=== PATIENT | female | born 1995 | race Caucasian/White ===

== ENCOUNTER 2025-06-22 22:07 | Emergency (ER) | payer BC, SELFPAY ==
[2025-06-22 22:25] VITALS: BP 123/80; PULSE 80; RESP 16; TEMP 36.6; O2SAT 96; BMI 24.4
[2025-06-23] MEDS: ONDANSETRON 2 MG/ML inj 4 MG IVP
--- OUTSIDE RECORDS SUMMARY | 2025-06-23 00:34 | XMS_ITS | Clinical Summary ---
Author Organization [employer] [facility] Address [address] [place] [address] Care Team Providers Care File Clerk Name Role Phone Lyndsay Dickson MD Primary Care Provider + [phone] Allergies Active Allergy Reactions Criticality Noted Date Comments Amoxicillin Hives,Rash Medium 11/25/2017 Sulfamethoxazole-Trimethopr im Hives Low 08/31/2018 Diatrizoate Allergen *Unknown 04/14/2003 Contrast Adverse Reaction Medications EPINEPHrine (EpiPen) 0.3 mg/0.3 mL auto-injectorIndi cations:Allergic reaction to allergen immunotherapy Inject 0.3 mg (1 pen.) intramuscular each time if needed for Allergic Reaction. 2 Each 1 12/19/19 23 Active multivitamin () 27 mg iron- 800 mcg folic Take 1 Tablet by mouth once daily with a meal. 11/01/19 25 Active medroxyPROGESTERo ne (Provera) 10 mg tabletIndications :Abnormal uterine bleeding (AUB) Take 1 Tablet (10 mg) by mouth once daily. Take for 10 days for resolution of bleeding. 10 Tablet 03/14/20 25 Active acetaminophen 325 mg tabletIndications :Retained products of conception after miscarriage (HC) Take 1-2 Tablets (325-650 mg) by mouth every 4 hours if needed (mild pain). Max acetaminophen dose: 4000mg in 24 hrs. 03/17/20 25 Active ibuprofen 200 mg tabletIndications :Retained products of conception after miscarriage (HC) Take 2-4 Tablets (400-800 mg) by mouth every 6 hours if needed for Pain (mild pain). 03/17/20 25 Active sertraline (ZOLOFT) 25 mg tabletIndications :Generalized anxiety disorder Take 1 Tablet (25 mg) by mouth once daily. 90 Tablet 1 05/02/20 25 Active ondansetron (ZOFRAN) 4 mg tabletIndications :Nausea Take 1 Tablet (4 mg) by mouth every 6 hours if needed for Nausea/Vomiting. 27 Tablet 06/21/20 25 Active ondansetron (ZOFRAN) 4 mg tabletIndications :Nausea Take 2 Tablets (8 mg) by mouth every 8 hours if needed for Nausea/Vomiting. 9 Tablet 1 12/06/19 25 025 Discontin ued(*Medi cation adjustmen t) ondansetron (ZOFRAN) 4 mg tabletIndications :Nausea Take 1 Tablet (4 mg) by mouth every 6 hours if needed for Nausea/Vomiting. 27 Tablet 06/20/20 25 025 Discontin ued(Reord er (E-cancel not sent)) Active Problems Problem Noted Date Diagnosed Date Retained products of conception after miscarriag e 03/16/2025 Anxiety 11/01/2024 Pap smear for cervical cancer screening 10/03/20 24 Overview (10/03/2024): 09/2024 NIL/ HPV negative Plan: Pap/ HPV due 09/2029 Seasonal allergies 12/18/2020 Resolved Problems Problem Noted Date Diagnosed Date Resolved Date Encounter for supervision of normal first in first trimester 11/01/2024 03/14/2025 Overview (11/01/2024): [facility] [place] 29 y.o. Final Estimated Date of Delivery: 07/01/25 by LMP FOB: Blair sex: High Risk? Anxiety, currently taking Zoloft. Feels stable Overview: GA at 1OB: 5w Blood type: pending Pre-gravid BMI 25.54, goal TWG 7 kg (15 lb)-11.5 kg (25 lb) at term Aspirin 81 mg indicated: no HSV: denies Domestic violence: _ Accepting of blood products: _ Imaging: _ Encounters Date Type Department Care Team Description 05/02/2025 Orders Only [facility] [address] [place] [phone] Lyndsay Dickson MD <No scans attached> 04/22/2025 Refill [facility] [address] [place] [phone] Lyndsay Dickson MD Refill Request (Sertraline) 03/28/2025 Nurse Triage [facility]ly [facility], [facility] [address] [facility] [address] [place] [address] Ruben Bray MD Vaginal Bleeding from Last 3 Months Immunizations Immunization Administration Dates Next Due DTaP 12/30/2002, 8,1997,08/22 DTaP-HIB (TriHIBIT) 10/17/1998 HIB PRP-T (ActHIB,Hiberix) 1997,1997 ,1997 Hepatitis A (Peds) 03/20/2010,04/25/2009 Hepatitis B (Adult) 04/17/1998,1997,1996 Human Papilloma Virus Vaccine 01/09/2016, 014,04/11/2013 Inactivated Polio Vaccine 12/30/2002,1997, 1997 Influenza, IIV3 (Age 6-35 mos) 06/26/2009 Influenza, IIV3 (Age >=3 years) 07/22/2011,07/29 MENINGOCOCCAL VACCINE 2 VIAL 2MO-55YO (MENVEO) 10/24/2013 MMR 12/30/2002,10/17/1998 Meningococcal Vaccine (Menactra) 01/09/2016,03/05 Oral Polio Vaccine 10/17/1998 Tdap 01/09/2016,03/20/2010 Family History Medical History Relation Name Comments Anxiety disorder Brother Son Hyperlipidemia Father Skin cancer Father Cancer-colon Maternal Grandfather Earl Cancer-breast Maternal Grandmother Marli Thyroid Disease Mother Ulcerative colitis Paternal Grandmother Relation Name Status Comments Brother Son Alive Father Alive Maternal Grandfather Earl Alive Maternal Grandmother Marli Alive Mother Alive Paternal Grandfather Alive Paternal Grandmother Alive Social History Tobacco Use Types Packs/Day Years Used Date Smoking Tobacco: Never Smokeless Tobacco: Never Tobacco Cessation:Counseling Given: Not Answered Alcohol Use Standard Drinks/Week Comments Not Currently 1 (1 standard drink = 0.6 oz pur e alcohol) PHQ-2 Answer Date Recorded PHQ-2 TOTAL SCORE 0 11/01/2024 Social Connections Answer Date Recorded Do you often feel lonely or isolated from those around you? 0 09/18/2024 Financial Resource Strain Answer Date R ecorded Difficulty of Paying Living Expenses 3 09/18/2024 Difficulty of Paying Living Expenses Not on file 09/18/2024 Food Insecurity Answer Date Recorded Do you worry your food will run out before you are able to buy more? 1 09/18/2024 Transportation Needs Answer Date Record ed Does lack of transportation keep you from medica l appointments? 1 09/18/2024 Does lack of transportation keep you from work, meetings or getting things that you need? 1 09/18/2024 Housing Stability Answer Date Recorded What is your housing situation today? 1 09/18/2024 Utilities Answer Date Recorded Do you have trouble paying f or utilities (for example, heat, electricity, water, phone)? 1 09/18/2024 Comments No Sex and Gender Information Value Date Recorded Sex Assigned at Not on file Legal Sex Female 8:28 AM CDT Gender Identity Not on file Sexual Orientation Not on file Obstetrics History Para Term AB IAB SAB Ectopic Multiple Livin g Live Births 1 0 0 0 1 0 1 0 0 0 0 Date Outcome GA Total Labor Labor/2nd/3rd Weight Sex Type Anes PTL Tessie A1 A5 Name Clin 025 SAB 10w2 d Last Filed Vital Signs Vital Sign Reading Time Taken Comments Blood Pressure 111/59 03/17/2025 11:10 AM CDT Pulse 59 03/17/2025 11:10 AM CDT Temperature 36.7 C (98 F) 03/17/2025 10:15 AM CDT Respiratory Rate 16 03/17/2025 11:10 AM CDT Oxygen Saturation 98% 03/17/2025 11:10 AM CDT Inhaled Oxygen Concentration - - Weight 78.7 kg (173 lb 6.4 oz) 03/17/2025 8:47 A M CDT Height 177.8 cm (5' 10) 03/17/2025 8:47 AM CDT Body Mass Index 24.88 03/17/2025 8:47 AM CDT Plan of Treatment Health Maintenance Due Date Last Done Comments COVID-19 vaccine series ( season) 2025 Influenza Vaccine (#1) 2025 1, 07/29/2010, 06/26/2009 BMI (ht and wt on same day) for age 18+ 09/19/2025 09/19/2024, 09/14/2023, 12/18/2022, Additional history exists Depression screening for age 12+ 11/01/2025 11/01/2024, 09/19/2024, 09/14/2023, Additional history exists Tetanus booster 01/08/2026 01/09/2016, 03/20/2010 Pap test for age 21-65 09/19/2029 , 09/19/2024, 08/19/2021, Additional history exists RSV vaccine for adults or (1 - 1-dose 75+ series) 2072 Hepatitis B series for 19+ Completed 04/17, 1997, 1997 HPV series for age 9-45 Completed 01/09/20 16, 10/24/2013, 04/11/2013 HIV for age 15-65 Completed 11/01/2024, 12/18/2022 Hepatitis C screening for age 18-79 Completed 11/01/2024, 09/14/2023 Pneumococcal series for age 6-49 Aged Out No longer eligible based on patient's age to complete this topic Procedures Procedure Name Priority Date/Time Associated Diagnosis Comments ANTI HIV 1/2 Routine 11/01/2024 12:19 PM PARTNERSHIP DEVELOPMENT MANAGER Encounter for supervision of normal first in first trimester (HC) ANTI HCV Routine 11/01/2024 12:19 PM PARTNERSHIP DEVELOPMENT MANAGER Encounter for supervision of normal first in first trimester (HC) HPV HIGH RISK Routine 09/19/2024 1:20 PM PARTNERSHIP DEVELOPMENT MANAGER Cervical cancer screening from Last 3 Months or Most Recently Relevant to Health Maintenance Results * ANTI HCV (11/01/2024 12:19 PM PARTNERSHIP DEVELOPMENT MANAGER) HEPATITIS C ANTIBODY NON-REACTI VE NON-REACT ALAN [facility] Comment: HCV antibody was non-reactive. There is no laboratory evidence of HCV infection. In most cases, no further action is required. However, if recent HCV exposure is suspected, a test for HCV RNA (test code 34294) is suggested. For additional information please refer to http://Iper[employer]/faq/FDO36h2 (This link is being provided for informational/ educational purposes only.) Blood BLOOD SPECIMEN / Unknown 11/01/2024 12:19 PM PARTNERSHIP DEVELOPMENT MANAGER 11/01/2024 12:20 PM PARTNERSHIP DEVELOPMENT MANAGER Narrative [facility] - 11/02/2024 2:01 PM PARTNERSHIP DEVELOPMENT MANAGER MULTIPLE TESTING PRIORITIES; ROUTINE TESTING TO FOLLOW. Marymicheline Ramos CN SEND OUTS Final Result [facility] [address] [place] [address], [facility] [address] [place] [address] * ANTI HIV 1/2 (11/01/2024 12:19 PM PARTNERSHIP DEVELOPMENT MANAGER) Pathologist [facility] HIV AG/AB, 4TH GEN NON-REACT ALAN NON-REACT ALAN [facility] Comment: HIV-1 antigen and HIV-1/HIV-2 antibodies were not detected. There is no laboratory evidence of HIV infection. PLEASE NOTE: This information has been disclosed to you from records whose confidentiality may be protected by state law. If your state requires such protection, then the state law prohibits you from making any further disclosure of the information without the specific written consent of the person to whom it pertains, or as otherwise permitted by law. A general authorization for the release of medical or other information is NOT sufficient for this purpose. For additional information please refer to http://Ipercast.[employer]/faq/XRP091 (This link is being provided for informational/ educational purposes only.) The performance of this assay has not been clinically validated in patients less than 2 years old. Blood BLOOD SPECIMEN / Unknown 11/01/2024 12:19 PM PARTNERSHIP DEVELOPMENT MANAGER 11/01/2024 12:20 PM PARTNERSHIP DEVELOPMENT MANAGER Narrative [facility] - 11/02/2024 2:01 PM PARTNERSHIP DEVELOPMENT MANAGER MULTIPLE TESTING PRIORITIES; ROUTINE TESTING TO FOLLOW. Mary Ramos WOJCIECH SEND OUTS Final Result [facility] [address] [place] [address], [facility] [address] [place] [address] * HPV HIGH RISK (09/19/2024 1:20 PM PARTNERSHIP DEVELOPMENT MANAGER) TYPE 16 Negative Negative 09/22/2024 1:52 PM PARTNERSHIP DEVELOPMENT MANAGER [facility] TYPE 18 Negative Negative 09/22/2024 1:52 PM PARTNERSHIP DEVELOPMENT MANAGER [facility] OTHER HIGH RISK TYPES Negative Negative 09/22/2024 1:52 PM PARTNERSHIP DEVELOPMENT MANAGER [facility] Other (Cervical) Non-Blood / Unknown 09/19/2024 1:20 PM PARTNERSHIP DEVELOPMENT MANAGER 09/20/2024 1:09 PM PARTNERSHIP DEVELOPMENT MANAGER Narrative [facility] - 09/22/2024 1:52 PM PARTNERSHIP DEVELOPMENT MANAGER HPV types 16, 18, 31, 33, 35, 39, 45, 51, 52, 56, 58, 59, 66 and 68 DNA were undetectable or below the pre-set threshold. Methodology: Aashish Vivien 4800 HPV Test Lyndsay Dickson MD MICROBIOLOGY Final Result [facility] [address] [place] [address], [place] from Last 3 Months or Most Recently Relevant to Health Maintenance Insurance [facility] BLUE CROSS OF NON-MD-ITS Advance Directives * Full Code (Latest Code Status on File) Date Activated Date Inactivated Comments 03/17/2025 8:46 AM 03/17/2025 1:21 PM Question Answer Comments Code Status Discussion: Reviewed Preferences Care Teams File Clerk Relationship Specialty Start [place] [address] [place] [address] PCP - General Family Practice 06/12/20
[2025-06-23] MEDS: METOCLOPRAMIDE HCL 5 MG/ML INJ 10 MG IVP (01:19)
[2025-06-23 01:43] VITALS: BP 119/78; PULSE 75; RESP 16; TEMP 36.6; O2SAT 96
[2025-06-23 01:44] VITALS: BP 119/78; PULSE 75; RESP 16; TEMP 36.6
--- NOTE | 2025-06-23 03:31 | ED_ITS ---
HPI - Nausea/Vomiting/Diarrhea General Date Seen: 06/23/25 Chief complaint: Nausea/Vomiting Stated complaint: vomiting Time Seen by Provider: 06/23/25 00:10 Source: patient Mode of arrival: ambulatory Limitations: no limitations History of Present Illness HPI Narrative: Patient is a 30-year-old 2 para 0010 at eight weeks gestation based on her LMP comes in with three weeks of nausea and vomiting. This has gotten worse over the past two or three days and she has not been able to keep anything down. She called the clinic and was told to come to the ER for IV fluids. She has no t established care with an pet caregiver yet. She has an ultrasound set up for next week. Her 1st ended in a miscarriage in the 1st trimester. She has not thrown up any blood. She denies lightheadedness or dizziness, fevers, urinary symptoms. She has tried Unisom and Zofran with minimal relief. Related Data Home Medications ?Medication ?Instructions ?Recorded ?Confirmed ondansetron HCl 4 mg tablet 4 mg PO Q8H PRN 06/22/25 0 06/22/25 Previous Rx's ?Medication ?Instructions ?Recorded ondansetron 8 mg disintegrating 8 mg PO TID PRN nausea and 06/23/25 tablet vomiting #30 tabs Allergies Allergy/AdvReac Type Severity Reaction Status Date / Time amoxicillin Allergy Unknown Verified 06/22/25 22:27 sulfamethoxazole (From Allergy Unknown Verified 06/22/25 22:27 Bactrim) trimethoprim (From Bactrim) Allergy Unknown Verified 06/22/25 22:27 Review of Systems Narrative: Review of systems is outlined above otherwise noted to be negative. PFSH [facility] Social History Smoking Status: Never smoker Second hand tobacco smoke exposure: No How often do you have a drink containing alcohol: never AUDIT-C Alcohol total score: 0 Non-prescribed substance use: denies use Exam Narrative: Exam Narrative: Vitals noted. HEENT: Conjunctiva clear. Neck is supple without adenopathy. Lungs: Clear to auscultation in all aragon. No wheezes, rales, rhonchi. Heart: Regular rate and rhythm without murmur. Abdomen: Soft and nontender. No guarding, rigidity, rebound. Bowel sounds are normal. No palpable masses. Extremities: No cyanosis or edema. Good distal pulses. Skin: No abnormalities noted of the exposed skin. Neurologic: Awake, alert, fully oriented. Neurologic exam is nonfocal. Const: Vital Signs, click to edit/add: Vital Signs - 24 hr 06/22/25 22:25 06/23/25 01:43 06/23/25 01:44 Temperature 98 F 98 F 98 F Pulse Rate [Pulse Oximeter] 80 75 75 Respiratory Rate 16 16 16 Blood Pressure [Ri ght Upper Arm] 123/80 119/78 119/78 Pulse Oximetry 96 96 Oxygen Delivery Me thod Room Air Room Air Course Course ED Course: Patient seen and examined. She has already received 1 L of normal saline and Zofran 4 mg IV. I ordered a second L of saline and a dose of Reglan 10 mg IV. She was able to keep down some fluids and crackers but her nausea persisted. She is comfortable being discharged. Vital Signs Vital signs: Initial Vital Signs Temperature 98 F 06/22/25 22:25 Temperature Source Temporal Artery Scan 06/22/25 22:25 Pulse Rate 80 06/22/25 22:25 Respiratory Rate 16 06/22/25 22:25 Blood Pressure 123/80 06/22/25 22:25 Blood Pressure Mean 94 06/22/25 22:25 Blood Pressure Position Sitting 06/22/25 22:25 Pulse Oximetry 96 06/22/25 22:25 Oxygen Delivery Method Room Air 06/22/25 22:25 Vital Signs Temperature 98 F 06/22/25 22:25 Pulse Rate 80 06/22/25 22:25 Respiratory Rate 16 06/22/25 22:25 Blood Pressure 123/80 06/22/25 22:25 Pulse Oximetry 96 06/22/25 22:25 Oxygen Delivery Method Room Air 06/22/25 22:25 Temperature 98 F 06/23/25 01:44 Pulse Rate 75 06/23/25 01:44 Respiratory Rate 16 06/23/25 01:44 Blood Pressure 119/78 06/23/25 01:44 Pulse Oximetry 96 06/23/25 01:43 Oxygen Delivery Method Room Air 06/23/25 01:43 Medications Administered Medications: Discontinued Medications Generic Name Dose Route Start Last Admin Trade Name Freq PRN Reason Stop Dose Admin Sodium Chloride 1,000 mls @ 1,000 mls/hr 06/22/25 23:45 06/23/25 00:19 0.9 % Sodium Chloride 1000 Ml IV 06/23/25 00:44 Infused .Q1H HILARIO Infusion Sodium Chloride 1,000 mls @ 1,000 mls/hr 06/23/25 00:20 06/23/25 01:03 0.9 % Sodium Chloride 1000 Ml IV 06/23/25 01:19 Infused .Q1H HILARIO Infusion Metoclopramide HCl 10 mg 06/23/25 01:09 06/23/25 01:19 Metoclopramide Hcl 5 Mg/Ml Inj IVP 06/23/25 01:10 10 mg ONCE ONE Administration Ondansetron HCl 4 mg 06/22/25 23:55 06/23/25 00:00 Ondansetron 2 Mg/Ml Inj IVP 06/22/25 23:56 4 mg ONCE ONE Administration Discharge Plan Discharge Clinical Impression: Hyperemesis gravidarum Patient Disposition: Home, Self-Care Condition: Improved Instructions: Hyperemesis Gravidarum (ED) Additional Instructions: Clear liquids in frequent small amounts. Zyrtec 10 mg daily. Zofran 8 mg every 8 hours as needed. Followup with OB if symptoms are not improving. Prescriptions: New ondansetron 8 mg tablet,disintegrating 8 mg PO TID PRN (Reason: nausea and vomiting) Qty: 30 0RF No Action ondansetron HCl 4 mg tablet 4 mg PO Q8H PRN Follow Up/Referrals: Provider,Not a Local [Primary Care Provider, Family Practice] Stand Alone Forms: [email or web address] Info Instructions
== END 2025-06-23 01:44 | disposition home or self-care (01) ==
PROVIDERS: Emergency Provider Family Medicine
DX: O21.0 Mild hyperemesis gravidarum (principal); Z3A.08 8 weeks gestation of pregnancy
CPT/HCPCS: 99282; 99283; 99284; J2405; J2765; J7030

== ENCOUNTER 2025-06-29 08:58 | Outpatient (CLI) | payer BC, SELFPAY ==
--- NOTE | 2025-06-29 09:15 | CRLHL7_ITS ---
For Patients: As a result of the Cures Act, medical imaging exams and procedure reports are released immediately into your electronic medical record. You may view this report before your referring provider. If you have questions, please contact your health care provider. OB ULTRASOUND INDICATION: Dating and viability. TECHNIQUE: Real time grayscale imaging of the fetus was performed. Transvaginal imaging performed. Transvaginal imaging performed to better demonstrate the endometrial structures and ovaries. LMP: 04/24/2025. LIT by LMP: 01/29/2026. GA: 9 w, 3 d. Previous US: No. CRL: 2.3 cm. 9 w 0 d. LIT: 01/29/2026. FHR: 185 BPM. Gestational sac: 3.1 cm. Appears within normal limits. Yolk sac: 3.7 mm. Appears within normal limits. Right ovary: N/V. Left ovary: N/V. IMPRESSION: 1. Single living intrauterine measures 9 weeks 0 days with sonographic due date 02/01/2026. 2. Small subchorionic hemorrhage measures 1.3 x 1.4 x 0.7 cm. 3. Nonvisualization of the ovaries. Ruben Jorgensen M.D. Diagnostic Radiologist [email or web address] KATEY/kodak candelario/Dictated by: Ruben Jorgensen MD @ 06/29/2025 1:10:00 PM (Electronically Signed)
== END 2025-06-29 08:59 | disposition home or self-care (01) ==
LOC: US 08:59
PROVIDERS: PCP Family Medicine; Visit Provider Physician Assistant
DX: O20.9 Hemorrhage in early pregnancy, unspecified (principal); Z3A.09 9 weeks gestation of pregnancy
CPT/HCPCS: 76817; 83021; 86592; 86703; 86704; 86706; 86762; 86787; 86803; 86850; 86900; 86901; 87086; 87340; 87491; 87591

== ENCOUNTER 2025-07-02 13:25 | Emergency (ER) | payer BC, SELFPAY ==
--- OUTSIDE RECORDS SUMMARY | 2025-07-02 13:28 | XMS_ITS | Clinical Summary ---
Author Organization [employer] [facility] [employer] [facility] Address [address] [place] [address] Care Team Providers Care Bearingizer Name Role Phone Lyndsay Dickson MD Primary Care Provider + [phone] Allergies Active Allergy Reactions Criticality Noted Date [...] in first trimester 11/01/2024 03/14/2025 Overview (11/01/2024): [facility] [place] 29 y.o. Final Estimated Date of Delivery: [...] Department Care Team Description 05/02/2025 Orders Only [facility] [address] [place] [phone] Lyndsay Dickson MD <No scans attached> 04/22/2025 Refill [facility] [address] [place] [phone] Lyndsay Dickson MD Refill Request (Sertraline) from Last 3 Months Immunizations Immunization Administration [...] ANTI HIV 1/2 Routine 11/01/2024 12:19 PM MANAGER OF COMPENSATION Encounter for supervision of normal first in first trimester (HC) ANTI HCV Routine 11/01/2024 12:19 PM MANAGER OF COMPENSATION Encounter for supervision of normal first in first trimester (HC) HPV HIGH RISK Routine 09/19/2024 1:20 PM MANAGER OF COMPENSATION Cervical cancer screening from Last 3 Months or Most Recently Relevant to Health Maintenance Results * ANTI HCV (11/01/2024 12:19 PM MANAGER OF COMPENSATION) HEPATITIS C ANTIBODY NON-REACTI VE NON-REACT ALAN [facility] Comment: HCV antibody was non-reactive. There is no laboratory evidence of HCV infection. In most cases, no further action is required. However, if recent HCV exposure is suspected, a test for HCV RNA (test code 03204) is suggested. For additional information please refer to http://Bazinga.PAYMEY/faq/JWB26j9 (This link is being provided for informational/ educational purposes only.) Blood BLOOD SPECIMEN / Unknown 11/01/2024 12:19 PM MANAGER OF COMPENSATION 11/01/2024 12:20 PM MANAGER OF COMPENSATION Narrative [facility] - 11/02/2024 2:01 PM MANAGER OF COMPENSATION MULTIPLE TESTING PRIORITIES; ROUTINE TESTING TO FOLLOW. us Mary Deena Estis CNM SEND OUTS Final Result [employer] [facility] [address] [place] [address], [facility] [address] [place] [address] * ANTI HIV 1/2 (11/01/2024 12:19 PM MANAGER OF COMPENSATION) HIV AG/AB, 4TH GEN NON-REACT ALAN NON-REACT ALAN [facility] Comment: HIV-1 antigen and HIV-1/HIV-2 antibodies [...] purpose. For additional information please refer to [email or web address]/faq/DYM919 (This link is being provided for informational/ educational purposes only.) The performance of this assay has not been clinically validated in patients less than 2 years old. Blood BLOOD SPECIMEN / Unknown 11/01/2024 12:19 PM MANAGER OF COMPENSATION 11/01/2024 12:20 PM MANAGER OF COMPENSATION Narrative [facility] - 11/02/2024 2:01 PM MANAGER OF COMPENSATION MULTIPLE TESTING PRIORITIES; ROUTINE TESTING TO FOLLOW. Mary Ramos KATHY SEND OUTS Final Result [facility] [address] [place] [address], [place] [phone] [facility] [address] [place] [address] * HPV HIGH RISK (09/19/2024 1:20 PM MANAGER OF COMPENSATION) TYPE 16 Negative Negative 09/22/2024 1:52 PM MANAGER OF COMPENSATION [facility]ORAT[facility] TYPE 18 Negative Negative 09/22/2024 1:52 PM MANAGER OF COMPENSATION [facility] OTHER HIGH RISK TYPES Negative Negative 09/22/2024 1:52 PM MANAGER OF COMPENSATION [facility] TR[facility] Other (Cervical) Non-Blood / Unknown 09/19/2024 1:20 PM MANAGER OF COMPENSATION 09/20/2024 1:09 PM MANAGER OF COMPENSATION Narrative [facility] - 09/22/2024 1:52 PM MANAGER OF COMPENSATION HPV types 16, 18, 31, 33, 35, 39, 45, 51, 52, 56, 58, 59, 66 and 68 DNA were undetectable or below the pre-set threshold. Methodology: Aashish Vivien 4800 HPV Test Lyndsay Dickson MD MICROBIOLOGY Final Result Performing Organization Address City/[facility]/ZIP Co de Phone Number [facility] [address] [place] [address], from Last 3 Months or Most Recently Relevant to Health Maintenance Insurance [facility] BLUE CROSS OF NON-NH-ITS Advance Directives * Full Code (Latest Code Status on File) Date Activated Date Inactivated Comments 03/17/2025 8:46 AM 03/17/2025 1:21 PM Question Answer Comments Code Status Discussion: Reviewed Preferences Care Teams Bearingizer Relationship Specialty [place] [address] [place] [address] PCP - General Family Practice 06/12/20
[2025-07-02 13:30] VITALS: BP 106/74; PULSE 61; RESP 16; TEMP 35.9; O2SAT 99; BMI 23.7
[2025-07-02 14:31] LABS: Chloride* 103 mmol/L (96-114); Potassium* 3.7 mmol/L (3.6-5.1); Sodium* 135 mmol/L (135-149)
--- NOTE | 2025-07-02 14:32 | ED.NAVMDI ---
HPI - Nausea/Vomiting/Diarrhea General Date Seen: 07/02/25 Chief complaint: Nausea/Vomiting Stated complaint: Nausea, vomiting Time Seen by Provider: 07/02/25 13:29 Source: patient and family Mode of arrival: ambulatory Limitations: no limitations History of Present Illness HPI Narrative: Patient is 10 weeks , last 4 weeks nausea vomiting here last week and found fluids helped a lot, nausea vomiting 3 to 4 times a day worse now, able to keep anything down, told to go to the ED, [facility], no fevers no chills, denies any diarrhea no abdominal pain, try and some Unisom along with vitamin B6. And promethazine this started , she was on Zofran previous and this is not helping. No blood when she throws up, feels a little dry, but able to drink in between his urinating. Denies any dysuria frequency. Had ultrasound which showed a single IUP. LIT 01/29/2025 Related Data Home Medications ?Medication ?Instructions ?Recorded ?Confirmed ondansetron HCl 4 mg tablet 4 mg PO Q8H PRN 06/22/25 06/22/25 Saccharomyces boulardii 250 mg 250 mg PO QDAY 06/29/25 06/29/25 capsule (Daily Probiotic (S. boulardii)) cholecalciferol (vitamin D3) 125 125 mcg PO QDAY 06/29/25 06/29/25 mcg (5,000 unit) capsule docosahexaenoic acid (dha)-epa 120 1 cap PO QDAY 06/29/25 06/29/25 mg-180 mg capsule (Fish Oil) iron,carbonyl 65 mg-vitamin C 125 tab PO QDAY 06/29/25 06/29/25 mg tablet magnesium 200 mg tablet 200 mg PO QDAY 06/29/25 06/29/25 vits no.126-ferrous fum tab PO QDAY 06/29/25 06/29/25 28 mg iron-folic acid 800 mcg tablet (Classic ) sertraline 25 mg tablet 25 mg PO QDAY 06/29/25 06/29/25 vitamin K2 180 mcg capsule 180 mcg PO QDAY 06/29/25 06/29/25 Previous Rx's ?Medication ?Instructions ?Recorded ondansetron 8 mg disintegrating 8 mg PO TID PRN nausea and 06/23/25 tablet vomiting #30 tabs promethazine 12.5 mg tablet 12.5 - 25 mg (1 - 2 x 12.5 mg) PO 06/29/25 Q4-6H PRN nausea and vomiting #30 tabs Allergies Allergy/AdvReac Type Severity Reaction Status Date / Time amoxicillin Allergy Unknown Verified 06/22/25 22:27 sulfamethoxazole (From Allergy Unknown Verified 06/22/25 22:27 Bactrim) trimethoprim (From Bactrim) Allergy Unknown Verified 06/22/25 22:27 Review of Systems Status of ROS: Reports: 10 or more systems reviewed and unremarkable except as noted in History and below PFSH PFS Medical History Depression ?F32.A - Depression, unspecified (ICD-10) Surgical History History of D&C ?Z98.890 - Other specified postprocedural states (ICD-10) Social History Narrative: SOCIAL HISTORY: Occupation: manager nursing, [employer]. Marital status: . Cheondoism/cultural needs: no. Chemical or radiation exposure: no. Pre- tobacco use: no. Pre- alcohol use: Less than 1 per day. Current tobacco use: no. Current alcohol use: no. Recreational drug use: no. Dietary restrictions: no. Blood transfusion acceptable in an emergency: yes. PSYCHOSOCIAL HISTORY: History of depression or currently depressed: Denies. Current or past physical, emotional, or sexual mistreatment: Denies. Problems that will make it hard to make it to appointments: Denies. What is your current living situation?: I presently have a place to live Problems where you live: no known problems In the past 12 months, utilities in danger of being shut off: no In past 12 months, lack of transportation kept you from medical appts, meetings, work, or getting things needed for daily living: no In the past 12 mos, have been you worried that your food would run out before you had money to buy more?: never true In the past 12 mos, the food you bought just didn't last and you didn't have money to buy more?: never true Smoking Status: Never smoker Second hand tobacco smoke exposure: No How often do you have a drink containing alcohol: never AUDIT-C Alcohol total score: 0 Non-prescribed substance use: denies use How often does anyone, including family, friends and others, physically hurt you: never How often does anyone, including family, friends and others, insult or talk down to you: never How often does anyone, including family, friends and others, threaten you with harm: never How often does anyone, including family, friends and others, scream or curse at you: never Exam Narrative: Exam Narrative: On examination she is in no apparent distress she is pleasant alert. Seen in room 7, not complaining of anything oropharynx is slightly dry, her neck is supple full range of motion, her eyes are not sunken [place] chest is good air entry bilateral with no wheezing crackles noted heart sounds are normal no clicks murmurs or gallops her abdomen is soft, no tenderness to palpation she does not have a gravid uterus. Palpable. Lower extremities move normally. Const: Vital Signs, click to edit/add: Vital Signs - 24 hr 07/02/25 13:30 Temperature 96.7 F L Pulse Rate [Pulse Oximeter] 61 Respiratory Rate 16 Blood Pressure [Le ft Upper Arm] 106/74 Pulse Oximetry 99 Oxygen Delivery Me thod Room Air Documenting provider has reviewed patient's vital signs: yes Course Vital Signs Vital signs: Initial Vital Signs Temperature 96.7 F L 07/02/25 13:30 Temperature Source Temporal Artery Scan 07/02/25 13:30 Pulse Rate 61 07/02/25 13:30 Respiratory Rate 16 07/02/25 13:30 Blood Pressure 106/74 07/02/25 13:30 Blood Pressure Mean 84 07/02/25 13:30 Blood Pressure Position Supine 07/02/25 13:30 Pulse Oximetry 99 07/02/25 13:30 Oxygen Delivery Method Room Air 07/02/25 13:30 Vital Signs Temperature 96.7 F L 07/02/25 13:30 Pulse Rate 61 07/02/25 13:30 Respiratory Rate 16 07/02/25 13:30 Blood Pressure 106/74 07/02/25 13:30 Pulse Oximetry 99 07/02/25 13:30 Oxygen Delivery Method Room Air 07/02/25 13:30 Temperature 96.7 F L 07/02/25 13:30 Pulse Rate 61 07/02/25 13:30 Respiratory Rate 16 07/02/25 13:30 Blood Pressure 106/74 07/02/25 13:30 Pulse Oximetry 99 07/02/25 13:30 Oxygen Delivery Method Room Air 07/02/25 13:30 Medications Administered Medications: Discontinued Medications Generic Name Dose Route Start Last Admin Trade Name Alexander PRN Reason Stop Dose Admin Sodium Chloride 1,000 mls @ 1,000 mls/hr 07/02/25 14:00 07/02/25 14:50 0.9 % Sodium Chloride 1000 Ml IV 07/02/25 14:59 Infused .Q1H [facility] Infusion Sodium Chloride 1,000 mls @ 1,000 mls/hr 07/02/25 14:00 07/02/25 15:28 0.9 % Sodium Chloride 1000 Ml IV 07/02/25 14:59 Infused .Q1H [facility] Infusion MDM - Nausea/Vomiting/Diarrhea MDM Narrative Medical decision making narrative: Differential diagnosis includes but is not limited to viral gastroenteritis, drug food poisoning, pyloric stenosis, gastritis, pancreatitis, hepatitis, cholecystitis, appendicitis, bowel obstruction, hyperemesis, cyclic vomiting syndrome, bulimia nervosa, migraine headache, motion sickness and medication side effect. These include the life threatening complications of appendicitis, drug food poisoning and bowel obstruction. Medical Records Attestation: I reviewed the patient's medical records. Lab Data Attestation: I reviewed the patient's lab results. Labs: Lab Results 07/02/25 07/02/25 Range/Units 13:53 14:10 Sodium 135 (135-149) mmol/L Potassium 3.7 (3.6-5.1) mmol/L Chloride 103 (96-114) mmol/L Carbon Dioxide 23 (20-32) mmol/L Anion Gap 9 (7-15) mEq/L BUN 8 (5-24) mg/dL Creatinine 0.6 (0.5-1.5) mg/dL Estimated Creat Clear 150.95 Estimated GFR 125 ml/min Glucose 89 (60-115) mg/dL Calcium 9.4 (8.4-10.6) mg/dL Urine Color Yellow (Yellow) Urine Appearance Clear (Clear) Urine pH 6.0 (5.0-8.5) Ur Specific [place] 1.025 (1.000-1.030) Urine Protein Negative (Negative) Urine Glucose (UA) Negative (Negative) Urine Ketones 3+ A (Negative) Urine Blood Negative (Negative) Urine Nitrite Negative (Negative) Urine Bilirubin Negative (Negative) Urine Urobilinogen 0.2 (0.2-1.0) Ur Leukocyte Esterase Negative (Negative) Urine RBC 0-2 (0-2) Urine WBC 5-10 A (0-5) Ur Squamous Epith Cells Moderate A (None-Few) Urine Bacteria Many A (None) Urine Mucus Many A (None) Urine shows some ketones, consistent with her presentation of mild dehydration, nausea vomiting in , I do not see any evidence of infection, she does have some wbc's but she also has lots of squamous epithelial cells, and bacteria which I think is a bit of dirty UA. We will wait with the culture shows. Discharge Plan Discharge Clinical Impression: Nausea and vomiting during , Dehydration Patient Disposition: Home w/ Parent or Adult Condition: Improved Instructions: Nausea and Vomiting in (ED) Additional Instructions: Home rest continue with her medications as directed, and oral fluids. Perhaps get with your OB provider in you get a standing order set up at the infusion center for fluids. ( I do agree with you) However your always welcome to come here, get your here fluids also. Activity Level: Light activity Prescriptions: No Action sertraline 25 mg tablet 25 mg PO QDAY cholecalciferol (vitamin D3) 125 mcg (5,000 unit) capsule 125 mcg PO QDAY magnesium 200 mg tablet 200 mg PO QDAY Fish Oil 120-180 mg capsule 1 cap PO QDAY Saccharomyces boulardii [Daily Probiotic (S. boulardii)] 250 mg capsule 250 mg PO QDAY Classic 28 mg iron- 800 mcg tablet PO QDAY vitamin K2 180 mcg capsule 180 mcg PO QDAY iron,carbonyl-vitamin C 65 mg iron- 125 mg tablet PO QDAY promethazine 12.5 mg tablet 12.5 - 25 mg PO Q4-6H PRN (Reason: nausea and vomiting) Qty: 30 1RF ondansetron HCl 4 mg tablet 4 mg PO Q8H PRN ondansetron 8 mg tablet,disintegrating 8 mg PO TID PRN (Reason: nausea and vomiting) Qty: 30 0RF Follow Up/Referrals: Lyndsay Dickson MD [Primary Care Provider, Family Practice] Stand Alone Forms: MyHealth Info Instructions
[2025-07-02 14:34] LABS: Anion Gap 9 mEq/L (7-15); Blood Urea Nitrogen* 8 mg/dL (5-24); Calcium* 9.4 mg/dL (8.4-10.6); Carbon Dioxide* 23 mmol/L (20-32); Creatinine* 0.6 mg/dL (0.5-1.5); Est. Creatinine Clearance* 150.95; Estimated Glomerular Filt Rate 125 ml/min; Glucose* 89 mg/dL (60-115)
[2025-07-02 14:56] LABS: Appearance Urine Clear (Clear)
== END 2025-07-02 15:57 | disposition home or self-care (01) ==
PROVIDERS: Emergency Provider Family Medicine; PCP Family Medicine
DX: O21.9 Vomiting of pregnancy, unspecified (principal); E86.0 Dehydration; Z3A.10 10 weeks gestation of pregnancy
CPT/HCPCS: 36415; 80048; 81001; 87086; 96360; 99283; 99284; J7030

== ENCOUNTER 2025-08-01 11:43 | Outpatient (CLI) | payer BC, SELFPAY | END 2025-08-01 11:44 | disposition home or self-care (01) | LOC: FRMREF 11:44 | PROVIDERS: PCP Family Medicine; Visit Provider Advanced Practice Midwife | DX: R30.0 Dysuria (principal) | CPT/HCPCS: 87086 ==

== ENCOUNTER 2025-09-12 09:00 | Outpatient (CLI) | payer BC, SELFPAY ==
--- NOTE | 2025-09-12 09:15 | CRLHL7_ITS ---
For Patients: As a result of the Century Cures Act, medical imaging exams and procedure reports are released immediately into your electronic medical record. You may view this report before your referring provider. If you have questions, please contact your health care provider. OB ULTRASOUND GREATER THAN 14 WEEKS CLINICAL HISTORY: scan. TECHNIQUE: Ultrasound OB pelvis transabdominal. Real-time helton-scale imaging of the pelvis was performed.? COMPARISON: 06/29/2025. FINDINGS: LIT by LMP: 01/29/2026. GA: 20 weeks 1 day. Position: Vertex. Cervix: Visualized. Technique: TA. Length of closed cervix: 3.1 cm. Placenta/Cord: Placenta Position: Posterior. Technique: TA. Placental tip to internal OS: 7.9 cm. Umbilical Cord: 3 vessel cord. Placental Insertion: Central. Amniotic Fluid: 4.2 cm SDP. Observed Structures Calvarium/Spine: Cerebellum: 2.0 cm, 20 weeks 3 days Cisterna Magna: 6.2 mm Nuchal Fold: 2.4 mm Lateral Ventricle: 7.2 mm CSP Choroid Plexus Midline Falx Spine Abdomen: Stomach Abd Cord Insert Urinary Bladder Kidneys Diaphragm Face: Nose/Lips Orbital View Profile Limbs: Upper Extremities Lower Extremities Hands Feet Vascular: 4 Ch Heart LVOT RVOT 3VV 3VTV BIOMETRY BDP: 5.2 cm, 21 weeks 5 days. 95.2% HC: 18.8 cm, 21 weeks 1 day. 81.8% AC: 15.7 cm, 20 weeks 6 days. 68.9% FL: 3.2 cm, 19 weeks 6 days. 34.3% FL/AC 20.3% HC/AC Ratio: 1.2 Heart Rate: 155 bpm. Age by this US: 20 weeks 6 days. LIT by this US: 01/24/2026. EFW: 361.5 grams. 0 lb 13 oz. Percentile by LIT: 69% IMPRESSION: Normal anatomic survey. Concordance of clinical and sonographic dating. Ruben Jorgensen M.D. Diagnostic Radiologist [email or web address] Transcribed: 11:22 am DW/Dictated by: Ruben Jorgensen MD @ 09/12/2025 10:34:00 AM (Electronically Signed)
== END 2025-09-12 09:01 | disposition home or self-care (01) ==
LOC: US 09:02
PROVIDERS: PCP Family Medicine; Visit Provider Advanced Practice Midwife
DX: Z34.92 Encounter for supervision of normal pregnancy, unspecified, second trimester (principal); Z3A.20 20 weeks gestation of pregnancy
CPT/HCPCS: 76805